=== PATIENT | female | born 1950 | race Caucasian/White ===

== ENCOUNTER 2023-06-07 10:44 | Day surgery (SDC) | payer MEDICARE, OTHER ==
[2023-06-07] MEDS ORDERED: LACTATED RINGERS 1,000 ML IV ONE (10:57)
[2023-06-07] MEDS ORDERED: PROPOFOL 200 MG/20 ML VIAL IVP ONE (12:29)
--- NOTE | 2023-06-07 12:40 | ANESTHESIA ---
Pre-Anesthesia VS, & Labs - Diagnosis HX POLYPS - Procedure COLONOSCOPY Vital Signs: Temp Pulse Resp BP Pulse Ox O2 Flow Rate 37.2 C 68 14 155/84 H 100 06/07/23 11:07 06/07/23 11:07 06/07/23 11:07 06/07/23 11:07 06/07/23 11:07 Height: 5 ft 6 in Weight (kg): 93.8 kg Body Mass Index: 33.3 BMI Classification: Obese - NPO Last Fluid Intake: 1000 - Is Patient ?: No Home Medications and Allergies Home Medications: Ambulatory Orders Acetaminophen [Tylenol] 650 mg PO Q6H PRN 06/06/23 Levothyroxine [Synthroid] 100 mcg PO QDAC 06/06/23 Rosuvastatin Calcium [Crestor] 5 mg PO DAILY 06/06/23 buPROPion [Wellbutrin Xl] 150 mg PO DAILY 06/06/23 hydroCHLOROthiazide [Hydrochlorothiazide] 25 mg PO DAILY 06/06/23 Acetaminophen [Tylenol] 650 mg PO Q6H PRN 06/06/23 Levothyroxine [Synthroid] 100 mcg PO QDAC 06/06/23 Rosuvastatin Calcium [Crestor] 5 mg PO DAILY 06/06/23 buPROPion [Wellbutrin Xl] 150 mg PO DAILY 06/06/23 hydroCHLOROthiazide [Hydrochlorothiazide] 25 mg PO DAILY 06/06/23 Allergies/Adverse Reactions: Allergies Allergy/AdvReac Type Severity Reaction Status Date / Time codeine AdvReac Emesis Verified 06/06/23 13:48 doxepin AdvReac Rash Verified 06/06/23 13:48 Penicillins AdvReac Rash Verified 06/06/23 13:47 Anes History & Medical History - Anesthetic History Anesthesia Complications: reports: No previous complications, Post-Operative Nausea/Vomiting Family history of Anesthesia Complications: Denies Family history of Malignant Hyperthermia: Denies - Medical History Cardiovascular: reports: Hypertension, High cholesterol Pulmonary: reports: None Gastrointestinal: reports: None Urinary: reports: None Musculoskeletal: reports: None Endocrine/Autoimmune: reports: HyPOthyroidism Skin: reports: None Smoking Status: Never smoker - Surgical History General: reports: Colonoscopy Gynecologic: reports: Hysterectomy Neurologic: reports: Craniotomy Orthopedic: reports: Knee replacement Exam General: Alert Dental: WNL Mouth Openin Fingerbreadth Neck Mobility: Normal Mallampati classification: II Thyromental Distance: 4-6 cm Plan Anesthesia Type: Total IV Consent for Procedure(s) Verified and Reviewed: Yes Code Status: Attempt Resuscitation ASA classification: 2-Mild systemic disease Is this case an emergency?: No
[2023-06-07] MEDS ORDERED: LACTATED RINGERS 700 ML IV ONE (13:17)
[2023-06-07 13:48] VITALS: BP 116/64; O2SAT 99
--- NOTE | 2023-06-07 14:51 | ANESTHESIA POST OP EVALUATION ---
Anesthesia Post Eval - Post Anesthesia Eval Vitals: Last Vital Signs Temp 37 C 06/07/23 13:41 Pulse 60 06/07/23 13:41 Resp 18 06/07/23 13:41 BP 116/64 06/07/23 13:41 Pulse Ox 99 06/07/23 13:41 O2 Flow Rate CV Function Including HR & BP: Stable Pain Control: Satisfactory Nausea & Vomiting: Negative Mental Status: Baseline Respiratory Status: Airway Patent Hydration Status: Satisfactory Anesthesia Complications: None
== END 2023-06-07 10:45 | disposition home or self-care (01) ==
LOC: SDS 10:44
PROVIDERS: ATTEND Surgery
DX: Z12.11 Encounter for screening for malignant neoplasm of colon (principal); K57.30 Diverticulosis of large intestine without perforation or abscess without bleeding; Z86.010 Personal history of colon polyps; E66.9 Obesity, unspecified; Z68.33 Body mass index [BMI] 33.0-33.9, adult
CPT/HCPCS: G0105; J7120

== ENCOUNTER 2023-08-18 07:15 | Outpatient (CLI) | payer MEDICARE, OTHER ==
[2023-08-18 12:16] LABS: BASOPHILS % (AUTO) 0.9 %; EOSINOPHILS # (AUTO) 0.1 10^3/uL (0.0-0.7); EOSINOPHILS % (AUTO) 1.8 %; HCT - HEMATOCRIT 44.9 % (37.0-47.0); LYMPHOCYTES # (AUTO) 1.5 10^3/uL (1.5-3.5); LYMPHOCYTES % (AUTO) 34.4 %; MEAN CORPUSCULAR HEMOGLOBIN 31.8 pg (27.0-31.0); MEAN CORPUSCULAR HGB CONC 33.4 g/dL (32.0-36.0); MEAN CORPUSCULAR VOLUME 95.3 fL (81.0-99.0); MEAN PLATELET VOLUME 9.5 fL (7.9-10.8); MONOCYTES # (AUTO) 0.5 10^3/uL (0.0-1.0); MONOCYTES % (AUTO) 10.3 %; NEUTROPHILS # (AUTO) 2.3 10^3/uL (1.5-6.6); NEUTROPHILS % (AUTO) 52.1 %; PLT - PLATELET COUNT 235 10^3/uL (130-450); RED BLOOD COUNT 4.71 10^6/uL (4.20-5.40); WHITE BLOOD COUNT 4.4 x10^3/uL (4.8-10.8)
[2023-08-18 12:29] LABS: ALBUMIN 3.9 g/dL (3.2-5.5); ALBUMIN/GLOBULIN RATIO 1.3 (1.0-2.2); ALKALINE PHOSPHATASE 50 IU/L (42-121); ALT ALANINE AMINOTRANSFERASE 24 IU/L (10-60); AST ASPARTATE AMINOTRANSFERASE 27 IU/L (10-42); BILIRUBIN,TOTAL 0.7 mg/dL (0.2-1.0); BUN - BLOOD UREA NITROGEN 18 mg/dL (6-20); CARBON DIOXIDE - CO2 33 mmol/L (21-32); CHLORIDE 101 mmol/L (101-111); CHOL/HDL RATIO 2.4 (<4.4); CHOLESTEROL 166 mg/dL; CREATININE 0.7 mg/dL (0.6-1.3); GFR - MDRD 82 (>89); GLUCOSE 102 mg/dL (74-104); HDL CHOLESTEROL 68 mg/dL; LDL CHOLESTEROL,CALCULATED 85 mg/dL; LDL/HDL RATIO 1.3 (<4.4); POTASSIUM 3.8 mmol/L (3.5-4.5); SODIUM 138 mmol/L (135-145); TRIGLYCERIDES 67 mg/dL (48-352); VLDL CHOLESTEROL 13 mg/dL
[2023-08-18 12:36] LABS: THYROID STIMULATING HORMONE 0.77 uIU/mL (0.34-5.60)
== END 2023-08-18 07:16 | disposition home or self-care (01) ==
LOC: LAB.N 07:15
PROVIDERS: ATTEND Nurse Practitioner
DX: I10 Essential (primary) hypertension (principal); E78.5 Hyperlipidemia, unspecified; E03.9 Hypothyroidism, unspecified
CPT/HCPCS: 36415; 80053; 80061; 83721; 84439; 84443; 85025

== ENCOUNTER 2023-08-25 13:28 | Outpatient (CLI) | payer MEDICARE, OTHER ==
--- NOTE | 2023-08-26 09:41 | Mammography Report ---
BILATERAL DIGITAL SCREENING MAMMOGRAM 3D/2D: 08/25/2023 CLINICAL: Routine screening. Comparison is made to exams dated: 05/07/2019 mammogram, 09/16/2021 mammogram, 09/03/2020 mammogram, a nd 05/04/2018 mammogram - [facility]. There are scattered areas of fibroglandular density in both breasts (category b / 25%-50% glandular t issue). No significant masses, calcifications, or other findings are seen in either breast. There has been no significant interval change. IMPRESSION: NEGATIVE There is no mammographic evidence of malignancy. A 1 year screening mammogram is recommended. Based on the Tyrer Cuzick model (a risk assessment model) the patient's lifetime risk is 6.4% and her 10 year risk is 5.2%. According to the ACR, ACS, and NCCN guidelines, an annual breast MRI exam mis g with mammogram is recommended if the patient's lifetime risk is 20% or greater. This exam was interpreted at Station ID: [id number]. NOTE: For mammograms, a report in lay terms will be sent to the patient. Approximately 15% of breast malignancies will not be visualized mammographically. In the management of a palpable breast mass, a negative mammogram must not discourage biopsy of a clinically suspicious lesion. Electronically Signed By: Mayelin Malik M.D., Ph.D. /edna:08/25/2023 21:51:26 letter sent: No_Letter ACR BI-RADS Category 1: Negative 3341F PARENCHYMAL PATTERN: (A) - The breast(s) demonstrate(s) scattered fibroglandular densities. BI-RADS CATEGORY: (1) - 1 RECOMMENDATION: (ANNUAL) - Recommend routine annual screening mammography. [id number] 1 year screening LATERALITY: (B)
== END 2023-08-25 13:29 | disposition home or self-care (01) ==
LOC: DI 13:28
DX: Z12.31 Encounter for screening mammogram for malignant neoplasm of breast (principal); R92.323 Mammographic fibroglandular density, bilateral breasts

== ENCOUNTER 2023-11-03 09:04 | Outpatient (CLI) | payer MEDICARE, OTHER | END 2023-11-03 09:05 | disposition home or self-care (01) | LOC: DI 09:04 | PROVIDERS: ATTEND Nurse Practitioner | DX: Z09 Encounter for follow-up examination after completed treatment for conditions other than malignant neoplasm (principal); Z86.79 Personal history of other diseases of the circulatory system | CPT/HCPCS: 93307 ==